=== PATIENT | male | born 1965 | race Hispanic/Latino ===

== ENCOUNTER 2018-09-26 00:02 | Emergency (ER) | payer MEDICAID, OTHER ==
[2018-09-26 00:12] VITALS: PULSE 68; RESP 16; TEMP 97.9; O2SAT 99
--- NOTE | 2018-09-26 01:07 | ED PDOC ---
HPI: Abdomen Time Seen by Provider: 09/26/18 00:38 Chief Complaint (Nursing): Abdominal Pain Chief Complaint (Provider): Abdominal Pain History Per: Patient History/Exam Limitations: no limitations Onset/Duration Of Symptoms: Days Current Symptoms Are (Timing): Still Present Quality Of Discomfort: Pressure Additional Complaint(s): 53 y/o male with a PMHx of Kidney Stones (x3) and hemorrhoids presents to the ED for evaluation of abdominal pain associated with chills, decreased urine output and back pain, onset yesterday. Patient notes pain initially begins in the abdomen and radiates down to the groin and to the back. Patient states pain is constant and has worsens at night thus prompting today's visit. Patient describes pain as pressure like that waxes and wanes in intensity. Patient states pain is more prominent when trying to urinate. Patient reports he believed pain was due to a hemorrhoid and thus took a suppository with no relief of symptoms. Patient notes pain is not similar to that of a Kidney stone. Patient states he was worked up by his PMD for possible prostatis, given amoxicilin that relieved symptoms. Patient reports of having stopped amoxicillin after symptoms resolved. PMD: In [place], [place] Past Medical History Reviewed: Historical Data, Nursing Documentation, Vital Signs Vital Signs: Last Vital Signs Temp 97.9 F 09/26/18 00:09 Pulse 68 09/26/18 00:09 Resp 16 09/26/18 00:09 BP 180/89 H 09/26/18 00:09 Pulse Ox 99 09/26/18 00:09 Primary Care Provider: Monika Ignacio - Medical History PMH: Kidney Stones (x3) Other PMH: hemorrhoids - Surgical History Surgical History: Appendectomy - Family History Family History: States: Unknown Family Hx - Home Medications Home Medications: Ambulatory Orders Medication Instructions Recorded Ciprofloxacin HCl [Cipro] 500 mg PO BID #20 tablet 09/26/18 - Allergies Allergies/Adverse Reactions: Allergies Allergy/AdvReac Type Severity Reaction Status Date / Time No Known Allergies Allergy Verified 09/26/18 00:12 Review of Systems ROS Statement: Except As Marked, All Systems Reviewed And Found Negative Constitutional: Positive for: Chills Gastrointestinal: Positive for: Abdominal Pain, Other (decreased appetite) Genitourinary Male: Positive for: Dysuria, Other (groin pain, decreased urine output) Musculoskeletal: Positive for: Back Pain Physical Exam - Reviewed Nursing Documentation Reviewed: Yes Vital Signs Reviewed: Yes - Physical Exam Appears: Positive for: No Acute Distress Head Exam: Positive for: ATRAUMATIC, NORMOCEPHALIC Skin: Positive for: Normal Color, Warm, Dry Eye Exam: Positive for: Normal appearance, EOMI, PERRL Neck: Positive for: Normal, Painless ROM Cardiovascular/Chest: Positive for: Regular Rate, Rhythm. Negative for: Murmur Respiratory: Positive for: Normal Breath Sounds. Negative for: Respiratory Distress Gastrointestinal/Abdominal: Positive for: Normal Exam, Soft. Negative for: Tenderness Back: Positive for: Normal Inspection. Negative for: L CVA Tenderness, R CVA Tenderness, Vertebral Tenderness Extremity: Positive for: Normal ROM. Negative for: Deformity Neurological/Psych: Positive for: Awake, Alert, Oriented (x3). Negative for: Motor/Sensory Deficits - ECG O2 Sat by Pulse Oximetry: 99 (RA) Pulse Ox Interpretation: Normal Medical Decision Making Medical Decision Making: Time: 010 Impression: UTI and Prostatis Less likely Kidney Stones Plan: -- ED Urine Dipstick -- Toradol 30 mg IM Scribe Attestation: Documented by Teddy James, acting as a scribe Dede Augustin MD. Provider Scribe Attestation: All medical record entries made by the Scribe were at my direction and personall y dictated by me. I have reviewed the chart and agree that the record accurately reflects my personal performance of the history, physical exam, medical decision making, and the department course for this patient. I have also personally directed, reviewed, and agree with the discharge instructions and disposition. Disposition - Clinical Impression Clinical Impression: Dysuria, Urinary pain, Abdominal pain - Patient ED Disposition Is Patient to be Admitted: No Doctor Will See Patient In The: Office Counseled Patient/Family Regarding: Studies Performed, Diagnosis, Need For Followup - Disposition Referrals: Jordi May Jr., MD [Staff Provider] - Disposition: Routine/Home Disposition Time: 02:13 Condition: GOOD Additional Instructions: NATAN RIVERA, thank you for letting us take care of you today. Your provider was Sage Augustin MD and you were treated for ABD PAIN. The emergency medical care you received today was directed at your acute symptoms. If you were prescribed any medication, please fill it and take as directed. It may take several days for your symptoms to resolve. Return to the Emergency Department if your symptoms worsen, do not improve, or if you have any other problems. Please contact your doctor or call one of the physicians/clinics you have been referred to that are listed on the Patient Visit Information form that is included in your discharge packet. Bring any paperwork you were given at discharge with you along with any medications you are taking to your follow up visit. Our treatment cannot replace ongoing medical care by a primary care provider outside of the emergency department. Thank you for allowing the [facility] team to be part of your care today. If you had an X-Ray or CT scan: A Radiologist will review the ED reading if any change in treatment is needed we will contact you. If you had a blood, urine, or wound culture: It will take several days for the results, if any change in treatment is needed we will contact you. If you had an STI test: It will take 48 hours for the results. Please call after 1 week if you have not heard back. Prescriptions: Ciprofloxacin HCl [Cipro] 500 mg PO BID #20 tablet Instructions: Dysuria, Adult (DC)
[2018-09-26 01:47] LABS: URINE BILIRUBIN NEGATIVE (NEGATIVE); URINE BLOOD NEGATIVE (NEGATIVE); URINE CLARITY CLOUDY (Clear); URINE COLOR YELLOW (YELLOW); URINE GLUCOSE (UA) NEG (NEGATIVE); URINE LEUKOCYTE ESTERASE NEG Leu/uL (Negative); URINE PROTEIN 100 mg/dL (NEGATIVE); URINE UROBILINOGEN 0.2-1.0 mg/dL (0.2-1.0)
[2018-09-26 03:09] VITALS: BP 140/86
== END 2018-09-26 02:20 | disposition home or self-care (01) ==
LOC: H.ER 00:02
DX: R30.0 Dysuria (principal); R10.9 Unspecified abdominal pain; Z87.442 Personal history of urinary calculi
CPT/HCPCS: 81003; 87491; 87591; 96372; 99283; J1885